=== PATIENT | female | born 1935 | race African-American/Black ===

== ENCOUNTER 2017-05-24 06:00 | Inpatient (IN) | payer MEDICARE, OTHER ==
[~2017-05-24] VITALS: Ht 157.5 cm; Wt 54.0 kg
[~2017-05-24 06:00] MED LIST: ASPI-1159 PO; LOVA40TA73 PO; METO50TA5 PO; TIOT18CA3 IH
[2017-05-24] MEDS ORDERED: METHYLPREDNISOLONE SOD SUCC 125 MG/2 ML VIAL IV STA (06:17)
[2017-05-24] MEDS ORDERED: ALBUTEROL (0.083%) 2.5MG/3ML NEB HHN STA ×2 (06:17→07:29)
[2017-05-24] MEDS ORDERED: IPRATROPIUM BROMIDE (0.02%) 0.5MG/2.5ML NEB HHN STA ×2 (06:17→07:29)
[2017-05-24] MEDS ORDERED: MAGNESIUM 2 G PREMIX 50 ML IV STA (06:17)
[2017-05-24] MEDS ORDERED: DILTIAZEM HCL 5MG/ML 5ML VIAL IV ONE ×2 (06:30→07:00)
[2017-05-24 06:46] LABS: BASOPHILS % 1.1 % (0.0-2.0); EOSINOPHILS % 0.8 % (0.0-5.0); HEMATOCRIT. 27.8 % (36.0-48.0); HEMOGLOBIN. 8.9 g/dL (12.0-16.0); LYMPHOCYTES % 34.5 % (20.0-50.0); MEAN CORPUSCULAR HEMOGLOBIN 34.1 pg (28.0-32.0); MEAN CORPUSCULAR VOLUME 106.1 fL (81.0-99.0); MEAN PLATELET VOLUME 10.6 fl (7.4-10.4); MONOCYTES % 11.7 % (2.0-8.0); NEUTROPHILS % 51.9 % (40.0-76.0); PLATELET 150 x1000/uL (130-400); RED BLOOD CELL COUNT 2.62 mill/uL (4.2-5.4); RED CELL DISTRIBUTION WIDTH 15.5 % (11.6-14.6)
[2017-05-24 07:18] LABS: CLARITY URINE CLOUDY (CLEAR); COLOR URINE YELLOW (YELLOW); GLUCOSE URINE NEGATIVE (NEGATIVE); KETONES URINE NEGATIVE (NEGATIVE); LEUKOCYTE ESTERASE URINE NEGATIVE (NEGATIVE); NITRITE URINE POSITIVE (NEGATIVE); OCCULT BLOOD URINE 1+ (NEGATIVE); PROTEIN URINE 3+ (NEGATIVE); SPECIFIC GRAVITY URINE 1.017 (1.005-1.030); UROBILINOGEN URINE 0.2 E.U./dL (0.2-1.0)
[2017-05-24 07:19] LABS: CARBON DIOXIDE 20 mEq/L (21-32); CHLORIDE 113 mEq/L (98-107); TROPONIN I 0.03 ng/mL (0.00-0.04)
[2017-05-24 07:20] LABS: INR 1.1; PARTIAL THROMBOPLASTIN TIME 26.4 sec (24.0-34.0); PROTHROMBIN TIME 11.4 sec
[2017-05-24] MEDS ORDERED: LEVOFLOXACIN 500MG PREMIX 100 ML IV ONE (07:45)
[2017-05-24] MEDS ORDERED: FUROSEMIDE 40MG/4ML VIAL IVP ONE (08:15)
[2017-05-24] MEDS ORDERED: DOCUSATE SODIUM 100MG CAPSULE PO PRN (09:45)
[2017-05-24] MEDS ORDERED: GUAIFENESIN 200MG/10ML SUGAR FREE UDC PO PRN (09:45)
[2017-05-24] MEDS ORDERED: LEVOFLOXACIN 500MG PREMIX 100 ML IV SCH (09:45)
[2017-05-24] MEDS ORDERED: HYDROMORPHONE HCL/PF 2MG/ML CPJ IV PRN (09:45)
[2017-05-24] MEDS ORDERED: MAGNESIUM/ALUMINUM HYDROXIDE/SIMETHICONE 30ML UDC PO PRN (09:45)
[2017-05-24] MEDS ORDERED: ACETAMINOPHEN 325MG TABLET PO PRN (09:45)
[2017-05-24] MEDS ORDERED: LORAZEPAM 2MG/ML CPJ IV PRN (09:45)
[2017-05-24] MEDS ORDERED: IPRATROPIUM/ALBUTEROL 0.5-3(2.5)MG/3ML NEB INH PRN (09:45)
[2017-05-24] MEDS ORDERED: DIPHENHYDRAMINE 50MG/ML VIAL IV PRN (09:45)
[2017-05-24] MEDS ORDERED: ONDANSETRON HCL 4MG/2ML VIAL IV PRN (09:45)
[2017-05-24] MEDS ORDERED: NA PHOS,M-B/NA PHOS,DI-BA ENEMA 118ML PR PRN (09:45)
[2017-05-24] MEDS ORDERED: HYDROCODONE/ACETAMINOPHEN 5/325MG TABLET PO PRN (09:45)
[2017-05-24 10:10] VITALS: BP 149/85
[2017-05-24 10:30] VITALS: BP 149/89
[2017-05-24] MEDS ORDERED: METHYLPREDNISOLONE SOD SUCC 125 MG/2 ML VIAL IV SCH (11:00)
[2017-05-24] MEDS: ENOXAPARIN 30MG/0.3ML SYR SUBCUT SCH (11:41)
[2017-05-24 12:00] VITALS: BP 134/78
[2017-05-24 16:00] VITALS: BP 137/96
[2017-05-24] MEDS: METHYLPREDNISOLONE SOD SUCC 40 MG/ML VIAL IV SCH (16:10)
[2017-05-24] MEDS ORDERED: POTASSIUM CHLORIDE 20MEQ TABLET SR PO NR (18:00)
[2017-05-24] MEDS: CLONIDINE 0.1MG TABLET PO PRN (19:05)
[2017-05-24 20:00] VITALS: BP 156/101
[2017-05-24] MEDS: IPRATROPIUM/ALBUTEROL 0.5-3(2.5)MG/3ML NEB HHN SCH (21:19)
[2017-05-24] MEDS: BUDESONIDE 0.5MG/2ML NEB HHN SCH (21:19)
[2017-05-24] MEDS: GUAIFENESIN 600MG ER TABLET PO SCH (21:56)
[2017-05-25] VITALS: BP 151/94
[2017-05-25] MEDS: METHYLPREDNISOLONE SOD SUCC 40 MG/ML VIAL IV SCH ×2 (00:21→09:11)
[2017-05-25] MEDS: IPRATROPIUM/ALBUTEROL 0.5-3(2.5)MG/3ML NEB HHN SCH ×4 (01:23→20:28)
[2017-05-25 04:00] VITALS: BP 158/90
[2017-05-25 07:04] LABS: CARBON DIOXIDE 20 mEq/L (21-32); CHLORIDE 115 mEq/L (98-107); LDL CHOLESTEROL 44 mg/dL (5-100); PHOSPHORUS 3.6 mg/dL (2.5-4.9)
[2017-05-25 07:05] LABS: HDL CHOLESTEROL 47 mg/dL (40-59)
[2017-05-25 07:32] LABS: HEMATOCRIT. 22.8 % (36.0-48.0); HEMOGLOBIN. 7.5 g/dL (12.0-16.0); MEAN CORPUSCULAR HEMOGLOBIN 34.1 pg (28.0-32.0); MEAN CORPUSCULAR VOLUME 102.9 fL (81.0-99.0); MEAN PLATELET VOLUME 10.1 fl (7.4-10.4); PLATELET 127 x1000/uL (130-400); RED BLOOD CELL COUNT 2.21 mill/uL (4.2-5.4)
[2017-05-25 08:00] VITALS: BP 156/95
[2017-05-25] MEDS: BUDESONIDE 0.5MG/2ML NEB HHN SCH ×2 (08:11→20:28)
[2017-05-25 08:55] LABS: PLATELET ESTIMATE SLIGHTLY DECREASED
[2017-05-25] MEDS ORDERED: LEVOFLOXACIN 250MG PREMIX 50 ML IV SCH (09:00)
[2017-05-25 09:08] LABS: T4 FREE 1.33 ng/dL (0.76-1.46)
[2017-05-25] MEDS: ASPIRIN 81MG EC TABLET PO SCH (09:10)
[2017-05-25] MEDS: GUAIFENESIN 600MG ER TABLET PO SCH (09:10)
[2017-05-25] MEDS: FUROSEMIDE 40MG/4ML VIAL IV SCH (09:11)
[2017-05-25 12:00] VITALS: BP 140/91
[2017-05-25] MEDS: ENOXAPARIN 30MG/0.3ML SYR SUBCUT SCH (12:12)
[2017-05-25 16:00] VITALS: BP 135/85
[2017-05-25] MEDS ORDERED: GUAIFENESIN/CODEINE 100-10MG/5ML UDC PO PRN (16:30)
[2017-05-25 16:32] LABS: CREATINE KINASE 78 IU/L (26-192); CREATINE KINASE MB FRACTION 1.9 ng/mL (0.5-3.6); TROPONIN I < 0.02 ng/mL (0.00-0.04)
[2017-05-25] MEDS: PREDNISONE 20MG TABLET PO SCH (17:27)
[2017-05-25] MEDS ORDERED: THROAT LOZENGES-BENZOCAINE/MENTH/CETYLPYRD CL LOZENGES MM PRN (18:30)
[2017-05-25] MEDS ORDERED: LIDOCAINE HCL 20 MG/ML 100ML BOTTLE MM PRN (18:30)
[2017-05-25 20:00] VITALS: BP 136/80
[2017-05-25 23:47] LABS: CREATINE KINASE 73 IU/L (26-192); CREATINE KINASE MB FRACTION 1.7 ng/mL (0.5-3.6); TROPONIN I < 0.02 ng/mL (0.00-0.04)
[2017-05-26] VITALS (56 sets, daily range): BP systolic 115–173; BP diastolic 59–99
[2017-05-26] MEDS: IPRATROPIUM/ALBUTEROL 0.5-3(2.5)MG/3ML NEB HHN SCH ×4 (01:10→20:07)
[2017-05-26 05:26] LABS: HEMATOCRIT. 23.3 % (36.0-48.0); HEMOGLOBIN. 7.6 g/dL (12.0-16.0); MEAN CORPUSCULAR HEMOGLOBIN 33.6 pg (28.0-32.0); MEAN CORPUSCULAR VOLUME 103.2 fL (81.0-99.0); MEAN PLATELET VOLUME 9.9 fl (7.4-10.4); PLATELET 157 x1000/uL (130-400); RED BLOOD CELL COUNT 2.26 mill/uL (4.2-5.4); RED CELL DISTRIBUTION WIDTH 15.2 % (11.6-14.6)
[2017-05-26 05:39] LABS: CREATINE KINASE MB FRACTION 1.7 ng/mL (0.5-3.6); TROPONIN I 0.03 ng/mL (0.00-0.04)
[2017-05-26] MEDS ORDERED: NON FORMULARY PATIENT HOME MED EA XX SCH (06:15)
[2017-05-26] MEDS: CLONIDINE 0.1MG TABLET PO PRN (06:32)
[2017-05-26] MEDS ORDERED: FUROSEMIDE 40MG/4ML VIAL IVP NR (07:00)
[2017-05-26 07:15] LABS: BG BASE EXCESS -4.8 mmol/L (-2.0-2.0); BG CARBOXYHEMOGLOBIN 0.2 % (0.5-1.5); BG DEOXYHEMOGLOBIN 3.3 % (0.0-5.0); BG FRACTION INSPIRED OXYGEN 28; BG HCO3 ACT 19.2 mmol/L (22.0-26.0); BG METHEMOGLOBIN 1.6 % (0.0-1.5); BG OXYGEN SATURATION 96.6 % (92.0-98.5); BG OXYHEMOGLOBIN 94.9 % (94.0-97.0); BG PCO2 31.4 mmHg (35.0-45.0); BG PH 7.405 (7.350-7.450); BG PO2 109.9 mmHg (75.0-100.0); BG SAMPLE SITE LEFT BRACHIAL; BG TOTAL HEMOGLOBIN 8.3 g/dL (12.0-18.0); BG VENT MODE NASAL CANNULA
[2017-05-26] MEDS ORDERED: AMIODARONE HCL 900 MG in DEXT 5% WATER 482 ML IV SCH (08:00)
[2017-05-26] MEDS ORDERED: POTASSIUM CHLORIDE 20MEQ TABLET SR PO SCH (08:00)
[2017-05-26] MEDS ORDERED: MAGNESIUM 2 G PREMIX 50 ML IV SCH (08:00)
[2017-05-26] MEDS: BUDESONIDE 0.5MG/2ML NEB HHN SCH ×2 (08:31→20:07)
[2017-05-26] MEDS: PREDNISONE 20MG TABLET PO SCH ×2 (08:52→17:51)
[2017-05-26] MEDS: FUROSEMIDE 40MG/4ML VIAL IV SCH (08:52)
[2017-05-26] MEDS: ASPIRIN 81MG EC TABLET PO SCH (08:52)
[2017-05-26 10:36] LABS: PLATELET ESTIMATE NORMAL
[2017-05-26] MEDS: ENOXAPARIN 30MG/0.3ML SYR SUBCUT SCH (11:00)
[2017-05-26 23:07] LABS: CREATINE KINASE 54 IU/L (26-192); CREATINE KINASE MB FRACTION 1.9 ng/mL (0.5-3.6); TROPONIN I < 0.02 ng/mL (0.00-0.04)
[2017-05-27] VITALS (47 sets, daily range): BP systolic 127–176; BP diastolic 72–101
[2017-05-27] MEDS: CLONIDINE 0.1MG TABLET PO PRN ×2 (02:22→08:54)
[2017-05-27] MEDS: IPRATROPIUM/ALBUTEROL 0.5-3(2.5)MG/3ML NEB HHN SCH ×4 (02:27→19:47)
[2017-05-27 05:49] LABS: HEMATOCRIT. 28.4 % (36.0-48.0); HEMOGLOBIN. 9.5 g/dL (12.0-16.0); MEAN CORPUSCULAR HEMOGLOBIN 33.2 pg (28.0-32.0); MEAN CORPUSCULAR VOLUME 99.1 fL (81.0-99.0); MEAN PLATELET VOLUME 10.1 fl (7.4-10.4); PLATELET 166 x1000/uL (130-400); RED BLOOD CELL COUNT 2.86 mill/uL (4.2-5.4)
[2017-05-27] MEDS: FUROSEMIDE 40MG/4ML VIAL IV SCH (08:52)
[2017-05-27] MEDS: PREDNISONE 20MG TABLET PO SCH ×2 (08:52→17:15)
[2017-05-27] MEDS: ASPIRIN 81MG EC TABLET PO SCH (08:52)
[2017-05-27] MEDS: BUDESONIDE 0.5MG/2ML NEB HHN SCH ×2 (09:42→19:47)
[2017-05-27] MEDS: AMIODARONE HCL 200 MG TABLET PO SCH ×2 (10:06→17:16)
[2017-05-27] MEDS: ENOXAPARIN 30MG/0.3ML SYR SUBCUT SCH (10:58)
[2017-05-27] MEDS ORDERED: LEVOFLOXACIN 250MG PREMIX 50 ML IV SCH (11:00)
[2017-05-27 11:42] LABS: PLATELET ESTIMATE NORMAL
[2017-05-27] MEDS: LOSARTAN POTASSIUM 25 MG TABLET PO SCH (17:16)
[2017-05-27] MEDS: CARVEDILOL 3.125 MG TABLET PO SCH (20:21)
[2017-05-27] MEDS: BLOOD SUGAR DIAGNOSTIC STRIP TEST SCH (22:43)
[2017-05-27] MEDS: INSULIN LISPRO 100 UNITS/ML SUBCUT SCH (23:00)
[2017-05-27] MEDS ORDERED: DEXTROSE 50% WATER 50ML SYRINGE IV PRN (23:00)
[2017-05-28] VITALS (15 sets, daily range): BP systolic 123–172; BP diastolic 67–96
[2017-05-28] MEDS: IPRATROPIUM/ALBUTEROL 0.5-3(2.5)MG/3ML NEB HHN SCH ×4 (01:30→20:03)
[2017-05-28] MEDS: CLONIDINE 0.1MG TABLET PO PRN (04:31)
[2017-05-28] MEDS: BLOOD SUGAR DIAGNOSTIC STRIP TEST SCH ×4 (06:21→20:30)
[2017-05-28 06:37] LABS: HEMATOCRIT. 31.4 % (36.0-48.0); HEMOGLOBIN. 10.2 g/dL (12.0-16.0); MEAN CORPUSCULAR HEMOGLOBIN 32.4 pg (28.0-32.0); MEAN CORPUSCULAR VOLUME 99.2 fL (81.0-99.0); MEAN PLATELET VOLUME 9.5 fl (7.4-10.4); PLATELET 187 x1000/uL (130-400); RED BLOOD CELL COUNT 3.16 mill/uL (4.2-5.4); RED CELL DISTRIBUTION WIDTH 17.3 % (11.6-14.6)
[2017-05-28] MEDS: INSULIN LISPRO 100 UNITS/ML SUBCUT SCH ×4 (07:20→21:00)
[2017-05-28] MEDS: FUROSEMIDE 40MG/4ML VIAL IV SCH (08:07)
[2017-05-28] MEDS: PREDNISONE 20MG TABLET PO SCH (08:07)
[2017-05-28] MEDS: AMIODARONE HCL 200 MG TABLET PO SCH ×2 (08:10→17:17)
[2017-05-28] MEDS: CARVEDILOL 3.125 MG TABLET PO SCH ×2 (08:10→20:52)
[2017-05-28] MEDS: ASPIRIN 81MG EC TABLET PO SCH (08:10)
[2017-05-28] MEDS: LOSARTAN POTASSIUM 25 MG TABLET PO SCH (08:10)
[2017-05-28 09:34] LABS: PLATELET ESTIMATE NORMAL
[2017-05-28] MEDS: ENOXAPARIN 30MG/0.3ML SYR SUBCUT SCH (11:11)
[2017-05-29] MEDS ORDERED: PREDNISONE 20MG TABLET PO SCH (09:00)
== END 2017-05-28 22:51 | disposition short-term general hospital (02) | DRG 871 ==
LOC: ER 06:00 → 5WST 08:41 → EDBEDREQ 08:46 → EDBEDREQSVC 08:49 → ENRESERV 08:55 → CVICU 05-26 08:01 → 3WST 05-27 15:24
PROVIDERS: ADMIT Internal Medicine; ATTEND Internal Medicine
PROC: 30233N1 Transfusion of Nonautologous Red Blood Cells into Peripheral Vein, Percutaneous Approach (ICD-10-PCS; principal; 2017-05-26)
DX: A41.9 Sepsis, unspecified organism (principal); J96.00 Acute respiratory failure, unspecified whether with hypoxia or hypercapnia; N17.0 Acute kidney failure with tubular necrosis; I50.43 Acute on chronic combined systolic (congestive) and diastolic (congestive) heart failure; E87.2 Acidosis; I13.0 Hypertensive heart and chronic kidney disease with heart failure and stage 1 through stage 4 chronic kidney disease, or unspecified chronic kidney disease; I42.9 Cardiomyopathy, unspecified; I47.2 Ventricular tachycardia; J44.1 Chronic obstructive pulmonary disease with (acute) exacerbation; N39.0 Urinary tract infection, site not specified; D64.9 Anemia, unspecified; E11.22 Type 2 diabetes mellitus with diabetic chronic kidney disease; F41.9 Anxiety disorder, unspecified; E78.5 Hyperlipidemia, unspecified; E87.6 Hypokalemia; F17.210 Nicotine dependence, cigarettes, uncomplicated; I25.10 Atherosclerotic heart disease of native coronary artery without angina pectoris; I27.2 Other secondary pulmonary hypertension; I48.91 Unspecified atrial fibrillation; N18.9 Chronic kidney disease, unspecified; I25.2 Old myocardial infarction; Z86.73 Personal history of transient ischemic attack (TIA), and cerebral infarction without residual deficits; Z95.5 Presence of coronary angioplasty implant and graft; Z82.49 Family history of ischemic heart disease and other diseases of the circulatory system; Z83.3 Family history of diabetes mellitus
CPT/HCPCS: 36415; 36600; 71010; 76770; 78582; 80048; 80053; 80061; 81001; 82375; 82550; 82553; 82570; 82805; 82962; 83036; 83605; 83690; 83735; 83880; 84100; 84156; 84439; 84443; 84484; 85025; 85379; 85610; 85730; 86850; 86900; 86920; 87040; 87086; 93005; 93306; 93970; 94640; 96365; 96366; 96375; 96376; 99291; A9558; J0282; J1650; J1815; J1940; J1956; J2920; J2930; J3475; J3490; J7050; J7060; J7512; J7611; J7620; J7626; P9016; A4315

== ENCOUNTER 2022-05-23 10:44 | Emergency (ER) | payer MEDICARE, OTHER ==
[~2022-05-23] VITALS: Ht 165.1 cm; Wt 55.0 kg
[2022-05-23] MEDS ORDERED: ALBUTEROL (0.083%) 2.5MG/3ML NEB HHN STA (10:57)
[2022-05-23] MEDS ORDERED: METHYLPREDNISOLONE SOD SUCC 125 MG/2 ML VIAL IV STA (10:57)
[2022-05-23] MEDS ORDERED: IPRATROPIUM BROMIDE (0.02%) 0.5MG/2.5ML NEB HHN STA (10:57)
[2022-05-23 12:55] LABS: HEMATOCRIT. 36.2 % (36.0-48.0); HEMOGLOBIN. 11.8 g/dL (12.0-16.0); MEAN CORPUSCULAR HEMOGLOBIN 29.7 pg (28.0-32.0); MEAN PLATELET VOLUME 8.5 fl (7.4-10.4); PLATELET 185 x1000/uL (130-400); RED BLOOD CELL COUNT 3.98 mill/uL (4.2-5.4); RED CELL DISTRIBUTION WIDTH 16.2 % (11.6-14.6)
[2022-05-23 13:01] LABS: CHLORIDE 97 mEq/L (98-107)
[2022-05-23] MEDS ORDERED: ASPIRIN 325MG TABLET PO ONE (14:00)
[2022-05-23] MEDS ORDERED: VANCOMYCIN 1G PREMIX 200 ML IV STA (14:00)
[2022-05-23] MEDS ORDERED: CEFEPIME 1,000 MG in DEXTROSE 5% WATER 50 ML IV STA (14:00)
[2022-05-23 14:29] LABS: PLATELET ESTIMATE NORMAL
[2022-05-23] MEDS ORDERED: POTASSIUM CHLORIDE 20MEQ TABLET SR PO ONE (17:15)
[2022-05-23 18:30] VITALS: BP 125/71
== END 2022-05-23 18:50 | disposition short-term general hospital (02) ==
LOC: ER 10:44
DX: J44.1 Chronic obstructive pulmonary disease with (acute) exacerbation (principal); E87.6 Hypokalemia; R77.8 Other specified abnormalities of plasma proteins; I10 Essential (primary) hypertension; Z20.822 Contact with and (suspected) exposure to COVID-19
CPT/HCPCS: 36415; 71045; 80053; 83880; 84484; 85025; 87426; 93005; 94644; 96365; 96366; 96368; 96375; 99291; C9803; J0692; J2930; J3370; J7060